=== PATIENT | male | born 1965 | race Caucasian/White ===

== ENCOUNTER 2023-06-03 10:58 | Outpatient (CLI) | payer OTHER | END 2023-06-03 10:59 | disposition home or self-care (01) | LOC: CSHULT 10:58 | PROVIDERS: ATTEND Physician Assistant Medical | DX: K76.82 Hepatic encephalopathy (principal); K74.60 Unspecified cirrhosis of liver; I85.00 Esophageal varices without bleeding | CPT/HCPCS: 76705 ==